=== PATIENT | female | born 1935 | race Caucasian/White ===

== ENCOUNTER → 2021-03-24 | Emergency (ER) | payer MEDICARE, BC ==
[~2021-03-24] VITALS: Ht 157.5 cm; Wt 58.6 kg
[~2021-03-24] MED LIST: HYDR-3972 PO; OMEP20CA15 PO; TEMA30CA5 PO
[2021-03-24 09:22] VITALS: BP 116/53
== END | disposition left against medical advice (07) ==
LOC: ER 08:54
DX: R52 Pain, unspecified (principal); Z53.21 Procedure and treatment not carried out due to patient leaving prior to being seen by health care provider

== ENCOUNTER 2021-10-19 09:09 | Emergency (ER) | payer MEDICARE, BC ==
[~2021-10-19] VITALS: Ht 157.5 cm; Wt 55.9 kg
--- NOTE | 2021-10-19 09:58 | NUR ---
Pt to CT.
--- NOTE | 2021-10-19 10:16 | NUR ---
Pt back to room from CT.
[2021-10-19 11:21] VITALS: BP 134/59
== END 2021-10-19 11:24 | disposition home or self-care (01) ==
LOC: ER 09:09
DX: R10.2 Pelvic and perineal pain (principal); R51.9 Headache, unspecified; Z72.89 Other problems related to lifestyle; Z60.2 Problems related to living alone; Z88.0 Allergy status to penicillin; Z88.2 Allergy status to sulfonamides; Z88.1 Allergy status to other antibiotic agents; Z88.8 Allergy status to other drugs, medicaments and biological substances; Z79.899 Other long term (current) drug therapy; W19.XXXA Unspecified fall, initial encounter; Y93.89 Activity, other specified; Y92.89 Other specified places as the place of occurrence of the external cause; Y99.8 Other external cause status
CPT/HCPCS: 70450; 72125; 72192; 99284